=== PATIENT | male | born 1995 | race Hispanic/Latino ===

== ENCOUNTER 2018-02-28 19:51 | Emergency (ER) | payer OTHER ==
[2018-02-28 20:56] VITALS: O2SAT 100
[2018-02-28] MEDS ORDERED: Sodium Chloride 0.9% 1,000 ML IV STA (21:09)
--- NOTE | 2018-02-28 21:26 | ED PDOC ---
HPI: General Adult Time Seen by Provider: 02/28/18 20:58 Chief Complaint (Nursing): Fever Chief Complaint (Provider): Fever History Per: Patient History/Exam Limitations: no limitations Onset/Duration Of Symptoms: Days (4x days) Current Symptoms Are (Timing): Still Present Severity: Moderate Additional Complaint(s): 22 year old male with a past medical history of reactive airway disease presents to the ED for an evaluation of a fever that has been ongoing for 4x days. Patient reports having bodyaches and pains (symptoms worsening at night). Patient also reports having dysuria and left upper quadrant pain (with breathing, moving, and palpating). Patient denies having nasal congestion, sore throat, penile discharge, hematuria, and sick contacts. Patient was tested negative for influenza yesterday. Patient reports alternating between ibuprofen and tylenol for symptoms, last dose of tylenol was 2x hours prior to arrival. PMD: Dr. White ([facility]) Past Medical History Reviewed: Historical Data, Nursing Documentation, Vital Signs Vital Signs: Last Vital Signs Temp 99.3 F 02/28/18 20:52 Pulse 88 02/28/18 20:52 Resp 16 02/28/18 20:52 BP 163/84 H 02/28/18 20:52 Pulse Ox 100 02/28/18 20:52 - Medical History PMH: Anxiety, Pneumonia Other PMH: reactive airway disease - Surgical History Surgical History: Tonsillectomy (2011) - Family History Family History: States: No Known Family Hx - Social History Alcohol: Other (yes) - Immunization History Hx Influenza Vaccination: Yes - Home Medications Home Medications: Ambulatory Orders Medication Instructions Recorded Ibuprofen [Motrin] 600 mg PO Q6 #20 tab 02/28/18 - Allergies Allergies/Adverse Reactions: Allergies Allergy/AdvReac Type Severity Reaction Status Date / Time No Known Allergies Allergy Verified 02/28/18 20:52 Review of Systems ROS Statement: Except As Marked, All Systems Reviewed And Found Negative Constitutional: Positive for: Fever ENT: Negative for: Nose Congestion, Throat Pain Gastrointestinal: Positive for: Abdominal Pain (left upper quadrant pain) Genitourinary Male: Positive for: Dysuria. Negative for: Hematuria, Penile Discharge Physical Exam - Reviewed Nursing Documentation Reviewed: Yes Vital Signs Reviewed: Yes - Physical Exam Appears: Positive for: Well, Non-toxic, No Acute Distress Head Exam: Positive for: ATRAUMATIC Skin: Positive for: Normal Color, Warm, Dry Eye Exam: Positive for: Normal appearance ENT: Positive for: Normal ENT Inspection, TM Is/Are (normal). Negative for: Nasal Congestion, Pharyngeal Erythema Cardiovascular/Chest: Positive for: Regular Rate, Rhythm Respiratory: Positive for: Normal Breath Sounds Gastrointestinal/Abdominal: Positive for: Normal Exam, Soft. Negative for: Tenderness, Mass, Guarding, Rebound Neurologic/Psych: Positive for: Alert, Oriented (3x) - Laboratory Results Result Diagrams: 02/28/18 21:50 02/28/18 21:50 - ECG O2 Sat by Pulse Oximetry: 100 (RA) Pulse Ox Interpretation: Normal Medical Decision Making Medical Decision Makin:58 Initial impression: 22 year old male with a fever. Initial plan: * XRay chest 2 views * CMP * CBC w/ diff * salvador-romero virus AB pnl * IV NS 1,000 ml IV 125 mls/hr * toradol 30 mg IVP * blood culture * infectious mononucleosis * influenza AB * reevaluation * * Labs resutled and reviewed with Pt who demonstrated full understanding * * Supportive care measures discussed Scribe Attestation: Documented by Mary Garcia, acting as a scribe for Danuta Villa Provider Scribe Attestation: All medical record entries made by the Scribe were at my direction and personally dictated by me. I have reviewed the chart and agree that the record accurately reflects my personal performance of the history, physical exam, medical decision making, and the department course for this patient. I have also personally directed, reviewed, and agree with the discharge instructions and disposition. Disposition - Clinical Impression Clinical Impression: Fever in adult, Mononucleosis - Patient ED Disposition Is Patient to be Admitted: No - Disposition Disposition: Routine/Home Disposition Time: 22:42 Condition: STABLE Prescriptions: Ibuprofen [Motrin] 600 mg PO Q6 #20 tab Instructions: Mononucleosis Forms: [facility] ([place]), [facility] ED School/Work Excuse
[2018-02-28 22:00] LABS: BASO % 0.7 % (0.0-2.0); EOS % 0.2 % (0.0-4.0); HEMOGLOBIN 14.4 g/dL (12.0-18.0); LYMPH # 0.9 K/uL (1.0-4.3); LYMPH % 41.3 % (20.0-40.0); MEAN CORPUSCULAR HEMOGLOBIN 29.7 pg (27.0-31.0); MEAN CORPUSCULAR HGB CONC 34.1 g/dL (33.0-37.0); MONO # 0.2 K/uL (0.0-0.8); MONO % 10.3 % (0.0-10.0); NEUT % 47.5 % (50.0-75.0); NRBC % 0.4 % (0.0-0.0); RBC 4.86 Mil/uL (4.40-5.90); WHITE BLOOD COUNT 2.1 K/uL (4.8-10.8)
[2018-02-28 22:11] LABS: ALB/GLOB RATIO 1.4 (1.0-2.1); ALBUMIN 4.2 g/dL (3.5-5.0); ALT/SGPT 29 U/L (21-72); AST/SGOT 32 U/L (17-59); BLOOD UREA NITROGEN 6 mg/dl (9-20); CALCIUM 8.7 mg/dL (8.4-10.2); GFR NON-AFRICAN AMERICAN > 60
[2018-02-28 22:43] VITALS: BP 147/79; PULSE 80; RESP 15; TEMP 98.7
--- NOTE | 2018-03-01 08:53 | RAD ---
Date of service: 02/28/2018 HISTORY: fever and cough COMPARISON: No prior. TECHNIQUE: Chest PA and lateral FINDINGS: LUNGS: No active pulmonary disease. PLEURA: No significant pleural effusion identified. No pneumothorax apparent. CARDIOVASCULAR: No aortic atherosclerotic calcification present. Normal cardiac size. No pulmonary vascular congestion. OSSEOUS STRUCTURES: No significant abnormalities. VISUALIZED UPPER ABDOMEN: Normal. OTHER FINDINGS: None. IMPRESSION: No acute cardiopulmonary disease appreciated.
== END 2018-02-28 22:43 | disposition home or self-care (01) ==
LOC: H.ER 19:51
DX: R50.9 Fever, unspecified (principal); B27.90 Infectious mononucleosis, unspecified without complication
CPT/HCPCS: 71046; 80053; 85025; 86308; 86664; 86665; 87040; 87804; 96374; 99283; J1885; J7030